=== PATIENT | female | born 1995 | race Caucasian/White ===

== ENCOUNTER 2019-05-20 12:54 | Emergency (ER) | payer OTHER ==
[2019-05-20 13:53] VITALS: BP 112/66
--- NOTE | 2019-05-20 13:53 | UC ---
Eye Complaint HPI - HPI Summary HPI Summary: Patient is 23 year old female, who present today to the urgent care with right eye redness and swelling for past 4 days. She reports that Right eyelids are swollen for 4 days started as small bump, today eye drainage . Denies any visual problems. She has been using warm compresses and symptoms have become progressive. Her eye movements are pain-free. She does not use contact lenses. Denies any fever, chills, cough chest pain or shortness of breath . No diaphoresis. Denies any abdominal pain , nausea or vomiting , diarrhea or constipation. - History of Current Complaint Stated Complaint: EYE COMPLAINT Time Seen by Provider: 05/20/19 13:28 Hx Obtained From: Patient Hx Last Menstrual Period: 05/06/19 ?: No - Allergies/Home Medications Allergies/Adverse Reactions: Allergies Allergy/AdvReac Type Severity Reaction Status Date / Time No Known Allergies Allergy Verified 05/20/19 13:44 Home Medications: Home Medications O C 1 tab PO QAM 05/20/19 [History Confirmed 05/20/19] diphenhydrAMINE HCl [Benadryl Allergy] 50 mg PO Q4H PRN 05/20/19 [History Confirmed 05/20/19] PMH/Surg Hx/FS Hx/Imm Hx - Additional Past Medical History Additional PMH: Past Medical History : None Past Surgical History: No Past History of Procedure Family History : non contributory Social History : Occasional alcohol, non smoker, no drug use. Previously Healthy: Yes - Family History Known Family History: Positive: Non-Contributory Review of Systems All Other Systems Reviewed And Are Negative: Yes Constitutional: Positive: Negative Skin: Positive: Negative Eyes: Positive: Drainage, Eye Redness, Other - Eyelid swelling and pain ENT: Positive: Negative Respiratory: Positive: Negative Cardiovascular: Positive: Negative Gastrointestinal: Positive: Negative Genitourinary: Positive: Negative Motor: Positive: Negative Neurovascular: Positive: Negative Musculoskeletal: Positive: Negative Neurological: Positive: Negative Psychological: Positive: Negative Is Patient Immunocompromised?: No Physical Exam - Summary Physical Exam Summary: Vital Signs Reviewed: Yes A+Ox3, no distress Eyes: Right eye with mild erythema of the conjunctiva and swelling of the upper eyelid. There is swelling and tender spot on the lateral aspect of the upper eyelid. There is swelling in the periorbital area on the inferior aspect of the right eye EOMI and PERRLA intact bilaterally. No active drainage noted. Eye movements are painful he Left eye is within normal limits ENT: Hearing grossly normal neck: supple Respiratory: Positive: No respiratory distress, No accessory muscle use Cardiovascular: skin color reflect adequate perfusion Musculoskeletal Exam: GAMBINO x 4 without difficulty Neurological: Positive: Alert, ambulatory without difficulty Psychological: Positive: Normal Response To Family Skin: Positive: no rash, no ecchymosis Triage Information Reviewed: Yes Vital Signs Reviewed: Yes Eye Complaint Course/Dx - Course Course Of Treatment: During the visit today, we discussed the findings she has a stye and mild conjunctivitius and early periorbital cellulitis. I will prescribe the medication to the pharmacy . I advised her to follow up with ophthalmology in 2 -3 days if no improvement here in [place] Patient expressed understanding . - Differential Dx/Diagnosis Provider Diagnosis: Stye, Periorbital cellulitis of right eye, Conjunctivitis Discharge ED - Sign-Out/Discharge Documenting (check all that apply): Patient Departure All imaging exams completed and their final reports reviewed: No Studies - Discharge Plan Condition: Stable Disposition: HOME Prescriptions: Ciprofloxacin 0.3% OPTH.NICOLE* [Cipro 0.3% Opth*] 1 drop RIGHT EYE Q6H 7 Days #1 btl Sulfamethox/Trimethoprim DS* [Bactrim DS 800/160 TAB*] 1 tab PO BID 10 Days #20 tab Patient Education Materials: Stye (ED), Periorbital Cellulitis in Adults (ED) Referrals: Ciera Washburn MD [Medical Doctor] - 3 Days No Primary Care Phys,NOPCP [Primary Care Provider] - Additional Instructions: Please start taking the medication as prescribed to the pharmacy . Follow up with ophthalmology in no better over next 2 to 3 days. Return to Urgent care / ER if symptoms get worse. - Billing Disposition and Condition Condition: STABLE Disposition: Home
== END 2019-05-20 14:11 | disposition home or self-care (01) ==
LOC: UCCORT 12:54
DX: H10.9 Unspecified conjunctivitis (principal); H00.031 Abscess of right upper eyelid; H00.011 Hordeolum externum right upper eyelid
CPT/HCPCS: 99202; G0463